=== PATIENT | female | born 1985 | race Caucasian/White ===

== ENCOUNTER 2020-09-01 23:47 | Emergency (ER) | payer MEDICAID, OTHER ==
[~2020-09-01] VITALS: Ht 162.6 cm; Wt 61.2 kg
[2020-09-01 23:54] VITALS: BP 151/99
== END 2020-09-02 05:57 | disposition left against medical advice (07) ==
LOC: ER 23:49
DX: K13.79 Other lesions of oral mucosa (principal); Z53.21 Procedure and treatment not carried out due to patient leaving prior to being seen by health care provider